=== PATIENT | male | born 1945 | race Caucasian/White ===

== ENCOUNTER 2017-11-23 07:54 | Day surgery (SDC) | payer MEDICARE, OTHER ==
[2017-11-16 10:41] VITALS: BMI 31.4
[~2017-11-23 07:54] MED LIST: LACTATED RINGERS 1,000 ML IV SCH; LIDOCAINE 1% 20 ML VIAL (10MG/ML) FOR IV START INTRADERMA PRN
[2017-11-23 08:12] VITALS: RESP 16; TEMP 99
[2017-11-23] MEDS ORDERED: PROPOFOL 10 MG/ML 20 ML VIAL IV ONE (08:29)
--- NOTE | 2017-11-23 08:34 | P.GSHP ---
History of Present Illness H&P Date: 11/23/17 Chief Complaint: Screening colonoscopy This a 71-year-old male who presents today for screening colonoscopy. Patient has a significant GI complaints. He's had some change in bowel habits recently. Past Medical History Past Medical History: COPD, Hyperlipidemia, Hypertension, Osteoarthritis (OA), Skin Disorder Additional Past Medical History / Comment(s): IBS, vitiligo, psoriasis, acute bronchitis History of Any Multi-Drug Resistant Organisms: None Reported Additional Past Surgical History / Comment(s): pilonidal cyst Past Anesthesia/Blood Transfusion Reactions: No Reported Reaction Smoking Status: Former smoker - Past Family History Father Family Medical History: Cancer Medications and Allergies Home Medications Medication Instructions Recorded Confirmed Type Albuterol Inhaler [Ventolin Hfa 2 puff INHALATION TID PRN 11/16/17 11/16/17 History Inhaler] Famotidine 40 mg PO HS 11/16/17 11/16/17 History Ibuprofen 800 mg PO TID 11/16/17 11/16/17 History Lidocaine 5% Patch [Lidoderm] 1 patch TOPICAL DAILY 11/16/17 11/16/17 History Lisinopril [Zestril] 20 mg PO DAILY 11/16/17 11/16/17 History Allergies Allergy/AdvReac Type Severity Reaction Status Date / Time No Known Allergies Allergy Verified 11/23/17 08:08 Surgical - Exam Vital Signs Temp Pulse Resp BP Pulse Ox 99.0 F 94 16 168/106 96 11/23/17 08:11 11/23/17 08:11 11/23/17 08:11 11/23/17 08:11 11/23/17 08:11 - General well developed, no distress - Eyes PERRL - ENT normal pinna - Neck no masses - Respiratory normal expansion - Cardiovascular Rhythm: regular - Abdomen Abdomen: soft, non tender Assessment and Plan Assessment: We'll perform screening colonoscopy.
--- NOTE | 2017-11-23 08:50 | P.OP ---
Date of Procedure: 11/23/17 Preoperative Diagnosis: Screening colonoscopy Postoperative Diagnosis: Diverticulosis Procedure(s) Performed: Colonoscopy Anesthesia: MAC Surgeon: Delfin Yee Pathology: none sent Condition: stable Disposition: PACU Description of Procedure: Patient's placed on the endoscopy table in the lateral position. He received IV sedation. Digital rectal exam was performed which revealed no abnormalities. The prostate was symmetric without nodules. The flexible colonoscope was then placed patient anus passed throughout the entire colon. The ileocecal valve was visualized. The cecum, ascending and transverse colon appeared normal. In the descending; there was a moderate diverticulosis. The scope was then brought back the rectum and this appeared normal. Scope was withdrawn for patient.
[2017-11-23 08:54] VITALS: BP 115/73
[2017-11-23 09:11] VITALS: PULSE 80
== END 2017-11-23 09:28 | disposition home or self-care (01) ==
LOC: ORWHC2ENDO 07:54
PROVIDERS: ATTEND Surgery
DX: K57.30 Diverticulosis of large intestine without perforation or abscess without bleeding (principal); K58.9 Irritable bowel syndrome, unspecified; J20.9 Acute bronchitis, unspecified; J44.0 Chronic obstructive pulmonary disease with (acute) lower respiratory infection; E78.5 Hyperlipidemia, unspecified; I10 Essential (primary) hypertension; M19.90 Unspecified osteoarthritis, unspecified site; L40.9 Psoriasis, unspecified; L80 Vitiligo; Z87.891 Personal history of nicotine dependence; Z79.1 Long term (current) use of non-steroidal anti-inflammatories (NSAID); Z79.899 Other long term (current) drug therapy
CPT/HCPCS: 45378; J2704

== ENCOUNTER → 2018-02-12 | Outpatient (CLI) | payer OTHER ==
[2018-02-12 13:27] LABS: HCT 40.3 % (39.0-53.0); MCH 33.1 pg (25.0-35.0); MCHC 34.9 g/dL (31.0-37.0); MCV 94.8 fL (80.0-100.0); Mean Platelet Volume 7.2; Platelet Count 207 k/uL (150-450); RBC 4.25 m/uL (4.30-5.90); RDW 13.7 % (11.5-15.5); WBC 8.9 k/uL (3.8-10.6)
[2018-02-12 20:53] LABS: Anion Gap 5.6 mmol/L (4.00-12.00); Carbon Dioxide 29.4 mmol/L (21.6-31.8); Magnesium 1.9 mg/dL (1.5-2.4); Potassium 4.4 mmol/L (3.5-5.5)
== END | disposition home or self-care (01) ==
LOC: LABWHC1 12:55
PROVIDERS: ATTEND Internal Medicine Interventional Cardiology
DX: Z01.812 Encounter for preprocedural laboratory examination (principal); M47.812 Spondylosis without myelopathy or radiculopathy, cervical region; R07.89 Other chest pain; I10 Essential (primary) hypertension
CPT/HCPCS: 36415; 80051; 82565; 82947; 83735; 84520; 85027

== ENCOUNTER 2018-02-28 08:36 | Day surgery (SDC) | payer OTHER ==
[2018-02-22 14:25] VITALS: BMI 30.4
[~2018-02-28 08:36] MED LIST changes: +ALPRAZolam 0.25 MG TAB PO PRN; +ALPRAZolam 0.5 MG TAB PO PRN; +ASPIRIN 325 MG TAB PO ONE; +ATORVASTATIN 80 MG TAB PO ONE; -LACTATED RINGERS 1,000 ML IV SCH; -LIDOCAINE 1% 20 ML VIAL (10MG/ML) FOR IV START INTRADERMA PRN; +NITROGLYCERIN SL TABS 0.4 MG TAB SUBLINGUAL PRN; +SODIUM CHLORIDE 0.9% 1,000 ML in EMPTY BAG 1 BAG IV ONE
[2018-02-28] MEDS ORDERED: LIDOCAINE 1% INJ 10MG/ML (20 ML MDV) ONE ×2 (12:10→12:20)
[2018-02-28] MEDS ORDERED: MIDAZOLAM 2 MG/2 ML VIAL ONE (12:12)
[2018-02-28] MEDS ORDERED: MIDAZOLAM 2 MG/2 ML VIAL IV ONE (12:15)
[2018-02-28] MEDS ORDERED: LIDOCAINE 1% INJ 10MG/ML (20 ML MDV) SQ ONE ×2 (12:15→12:17)
[2018-02-28] MEDS ORDERED: HEPARIN SODIUM 1,000 UN/ML (10ML VL) ONE (12:31)
[2018-02-28] MEDS ORDERED: IOPAMIDOL-370 100ML BTL INJ ONE ×2 (13:07→13:32)
[2018-02-28] MEDS ORDERED: TICAGRELOR 90 MG TAB ONE (13:24)
[2018-02-28] MEDS ORDERED: TICAGRELOR 90 MG TAB PO ONE (13:26)
[2018-02-28] MEDS ORDERED: NITROGLYCERIN 1000MCG/10ML SYRINGE INTRACORON ONE (13:28)
[2018-02-28] MEDS ORDERED: MORPHINE SULFATE 4 MG/ML SYRINGE ONE (13:33)
[2018-02-28] MEDS ORDERED: MORPHINE SULFATE 4 MG/ML SYRINGE IV ONE (13:34)
[2018-02-28] MEDS ORDERED: RX INFO: IV CONTRAST WAS GIVEN 1 EACH MISC MISCELLANE PRN (13:40)
[2018-02-28] MEDS ORDERED: NITROGLYCERIN SL TABS 0.4 MG TAB SUBLINGUAL PRN (13:40)
[2018-02-28] MEDS ORDERED: ATROPINE SULFATE 0.1 MG/ML 10ML SYRINGE IV PRN (13:40)
[2018-02-28] MEDS ORDERED: ZOLPIDEM 5 MG TAB PO PRN (13:40)
[2018-02-28] MEDS ORDERED: MAG HYDROX/AL HYDROX/SIMETH 30 ML CUP PO PRN (13:40)
[2018-02-28] MEDS: METOPROLOL TARTRATE 25 MG TAB PO SCH (19:54)
[2018-02-28] MEDS: SODIUM CHLORIDE 0.9% 1,000 ML IV SCH (22:08)
[2018-03-01 07:46] LABS: Calcium 8.7 mg/dL (8.4-10.2); Potassium 3.9 mmol/L (3.5-5.1)
[2018-03-01 07:53] LABS: Basophils % (A) 0 %; Eosinophils # (A) 0.1 k/uL (0-0.7); Eosinophils % (A) 1 %; HCT 32.4 % (39.0-53.0); HGB 11.1 gm/dL (13.0-17.5); Lymphocytes % (A) 22 %; MCH 32.8 pg (25.0-35.0); MCHC 34.2 g/dL (31.0-37.0); MCV 95.8 fL (80.0-100.0); Mean Platelet Volume 7.1; Monocytes # (A) 0.6 k/uL (0-1.0); Monocytes % (A) 7 %; Neutrophils % (A) 68 %; Platelet Count 210 k/uL (150-450); RBC 3.38 m/uL (4.30-5.90); RDW 13.6 % (11.5-15.5); WBC 8.8 k/uL (3.8-10.6)
[2018-03-01 08:11] VITALS: BP 106/49; PULSE 65; RESP 17; TEMP 98.4
[2018-03-01] MEDS: METOPROLOL TARTRATE 25 MG TAB PO SCH (08:12)
[2018-03-01] MEDS: SODIUM CHLORIDE 0.9% 1,000 ML IV SCH (08:12)
[2018-03-01] MEDS ORDERED: LOSARTAN 25 MG TAB PO SCH (09:00)
[2018-03-01] MEDS ORDERED: ASPIRIN 81 MG PO SCH (09:00)
[2018-03-01] MEDS ORDERED: CLOPIDOGREL 75 MG TAB PO SCH (09:00)
[2018-03-01] MEDS ORDERED: ATORVASTATIN 40 MG TAB PO SCH (09:00)
--- NOTE | 2018-03-01 14:06 | PCN ---
PROCEDURE NOTE DATE OF SERVICE: 02/28/2018 PROCEDURE: 1. Transvenous temporary pacemaker placement. 2. Orbital atherectomy of proximal and distal heavily calcified super dominant RCA. 3. PTCA and stenting of proximal and distal RCA with drug-eluting stent. PERFORMED BY: Dr. Vinicio Burger. Moderate conscious sedation time was 83 minutes. Patient was administered Versed, Benadryl and fentanyl and his oxygen saturation, hemodynamics and EKG were monitored closely. CLINICAL INFORMATION: Mr. Caleb Coronado is a 72-year-old gentleman, a who has been having symptoms of angina, had a positive stress test with inferolateral ischemia, underwent a cardiac cath last week, which revealed a significant lesion involving a superdominant RCA in the proximal and distal portion with a heavily calcified vessel. He also had a circumflex lesion. LAD had minor irregularities. He was advised intervention and brought in for the procedure electively. Risks, benefits, options, rationale were explained and discussed with the patient and family. They understood all details and wished to proceed with the procedure. PROCEDURE NOTE: Under local anesthesia and strict aseptic precautions, a 6-Algerian introducer was placed in the right femoral vein. The transvenous temporary balloon to pacemaker was positioned in the right ventricular apex with good thresholds. Pacemaker was set at a backup rate of 40 with a mA of 5. From the right femoral approach under local anesthesia and strict aseptic precautions, an access was obtained with micropuncture needle technique. A 7-Algerian introducer was placed in the right femoral artery. I used Allright 3.5 guide catheter of 7-Algerian caliber to cannulate the right coronary artery. I used a BMW straight wire to cross the lesion. Using a FineCross catheter, I exchanged the wire and placed a Viper wire. I then performed orbital atherectomy of both the proximal and distal lesions. Three passes were made of each location at a low speed. Patient tolerated the procedure well so far. Subsequently, I pre-dilated with a 3.0 balloon to both the lesions. Subsequently, an 18 mm 3.5 caliber Xience drug- eluting stent was deployed in the distal lesion. This was deployed at 14 atmospheres with an excellent angiographic result. Subsequently, I deployed a 4.0 caliber Xience stent in the proximal lesion of about 12 mm length. This stent was then post-dilated with a 4.5 caliber 12 mm NC Trek balloon at 15 atmospheres. Both the stents were very well expanded angiographically. Excellent result was achieved. Patient had chest pain and inferior ST elevation with inflations. Excellent angiographic result without complication was achieved. The arterial sheath was taken out and a Perclose device used to secure hemostasis. The venous sheath was taken out and manual compression used to secure hemostasis and he was sent to the extended stay unit in a stable condition. Results were discussed with the patient's son and [id number]. I also discussed with the patient the findings. Excellent angiographic result without complication was achieved. I expect the patient to be discharged in 24 hours. MMODL / IJN: [id number] /
--- NOTE | 2018-03-01 20:51 | DS ---
DISCHARGE SUMMARY DATE OF ADMISSION: 02/28/2018. DATE OF DISCHARGE: 03/01/2018. PROCEDURES PERFORMED: Transvenous temporary pacemaker, PTCA and stenting of proximal and distal RCA along with orbital atherectomy. Drug-eluting stents were used. Mr. Coronado was brought in electively for PCI and orbital atherectomy. Procedure was performed uneventfully. Postprocedure course was unremarkable. There was mild oozing of the right groin and FemoStop was applied. This morning he is doing well without symptoms ambulating without any problems. His right groin is clean and dry with a small area of a hematoma, but he had a previous hematoma as well, which was a small hematoma from a cath a week ago. There is no bruit. The pulse is excellent. He is ambulating without symptoms. His blood pressure is 110/70, pulse rate is about 64 per minute. There is no JVD or carotid bruit. S1, S2 with a short systolic murmur audible. Lungs are clear. Abdomen is soft, nontender. Right groin is clean and dry with a small area of ecchymosis. No hematoma. Distal pulses are good. Central nervous system is normal. EKG revealed sinus mechanism with a right bundle. Laboratory data are still pending at the time of my dictation. This patient will be discharged and I will see him in the office tomorrow for a followup visit. He has a circumflex lesion which will be addressed in the next 4-5 weeks or so. All discharge instructions were given. Prior to discharge, we will make sure he ambulates without symptoms, has no issues and we will check his laboratory data. I discussed my thoughts in detail with the patient and also the discharge nurse, Anne. MMJAYSHREE / KERI: [id number] /
== END 2018-03-01 11:58 | disposition home or self-care (01) ==
LOC: CATHCVL 08:36 → 3SCARD 17:59 → CATHCVL 03-01 11:58
PROVIDERS: ATTEND Internal Medicine Interventional Cardiology
DX: I25.10 Atherosclerotic heart disease of native coronary artery without angina pectoris (principal); I25.84 Coronary atherosclerosis due to calcified coronary lesion; I10 Essential (primary) hypertension; Z87.891 Personal history of nicotine dependence; E78.00 Pure hypercholesterolemia, unspecified; J44.9 Chronic obstructive pulmonary disease, unspecified; M47.812 Spondylosis without myelopathy or radiculopathy, cervical region; M47.816 Spondylosis without myelopathy or radiculopathy, lumbar region; Z79.82 Long term (current) use of aspirin; Z79.899 Other long term (current) drug therapy
CPT/HCPCS: 80048; 85025; C9602; C1769 ×4; C1725 ×2; C1894; C1887; C1760; C1874; J2250; J2270; J2001; J1644 ×2; Q9967

== ENCOUNTER → 2018-03-30 | Outpatient (CLI) | payer OTHER ==
[2018-03-30 17:24] LABS: HCT 37.5 % (39.0-53.0); HGB 12.1 gm/dL (13.0-17.5); MCH 32.1 pg (25.0-35.0); MCHC 32.3 g/dL (31.0-37.0); MCV 99.2 fL (80.0-100.0); Mean Platelet Volume 6.7; Platelet Count 181 k/uL (150-450); RBC 3.78 m/uL (4.30-5.90); RDW 13.4 % (11.5-15.5); WBC 7.6 k/uL (3.8-10.6)
[2018-03-31 02:31] LABS: Anion Gap 7.7 mmol/L (4.00-12.00); Carbon Dioxide 28.3 mmol/L (21.6-31.8); Potassium 4.3 mmol/L (3.5-5.5)
== END | disposition home or self-care (01) ==
LOC: LABWHC1 17:04
PROVIDERS: ATTEND Internal Medicine Interventional Cardiology
DX: I25.10 Atherosclerotic heart disease of native coronary artery without angina pectoris (principal); I10 Essential (primary) hypertension
CPT/HCPCS: 36415; 80051; 82565; 82947; 84520; 85027

== ENCOUNTER 2018-04-04 08:22 | Day surgery (SDC) | payer OTHER ==
[~2018-04-04 08:22] MED LIST changes: -ASPIRIN 325 MG TAB PO ONE; +ASPIRIN 325 MG TAB PO STA; -ATORVASTATIN 80 MG TAB PO ONE; +ATORVASTATIN 80 MG TAB PO STA
[2018-04-04] MEDS ORDERED: SODIUM CHLORIDE 0.9% 1,000 ML IV ONE (08:58)
[2018-04-04] MEDS ORDERED: LIDOCAINE 1% INJ 10MG/ML (20 ML MDV) ONE (10:10)
[2018-04-04] MEDS ORDERED: MIDAZOLAM 2 MG/2 ML VIAL IVP ONE (10:35)
[2018-04-04] MEDS ORDERED: LIDOCAINE 1% INJ 10MG/ML (20 ML MDV) SQ ONE (10:38)
[2018-04-04] MEDS ORDERED: MORPHINE SULFATE 4 MG/ML SYRINGE ONE (10:41)
[2018-04-04] MEDS: MORPHINE SULFATE 4 MG/ML SYRINGE IV ONE ×2 (10:43→11:16)
[2018-04-04] MEDS ORDERED: BIVALIRUDIN BOLUS 250 MG/50 ML IV ONE (10:50)
[2018-04-04] MEDS: NITROGLYCERIN 1000MCG/10ML SYRINGE INTRACORON ONE ×2 (10:50→11:11)
[2018-04-04] MEDS ORDERED: BIVALIRUDIN 250 MG in SODIUM CHLORIDE 0.9% 50 ML IV ONE (10:50)
[2018-04-04] MEDS ORDERED: IOPAMIDOL-370 100ML BTL INJ ONE ×2 (11:00→11:16)
[2018-04-04] MEDS ORDERED: CLOPIDOGREL 75 MG TAB ONE (11:14)
[2018-04-04] MEDS ORDERED: CLOPIDOGREL 75 MG TAB PO ONE (11:17)
[2018-04-04] MEDS ORDERED: RX INFO: IV CONTRAST WAS GIVEN 1 EACH MISC MISCELLANE PRN (11:32)
[2018-04-04] MEDS ORDERED: MAG HYDROX/AL HYDROX/SIMETH 30 ML CUP PO PRN (11:32)
[2018-04-04] MEDS ORDERED: ATROPINE SULFATE 0.1 MG/ML 10ML SYRINGE IV PRN (11:32)
[2018-04-04] MEDS ORDERED: NITROGLYCERIN SL TABS 0.4 MG TAB SUBLINGUAL PRN ×2 (11:32→11:41)
[2018-04-04] MEDS ORDERED: ZOLPIDEM 5 MG TAB PO PRN (11:32)
[2018-04-04] MEDS: SODIUM CHLORIDE 0.9% 1,000 ML IV SCH (17:57)
--- NOTE | 2018-04-04 17:57 | CC ---
CARDIAC CATHETERIZATION REPORT DATE OF SERVICE: 04/04/2018. PROCEDURE PERFORMED: 1. Coronary angiography of the right coronary artery. 2. PTCA and stenting of a very tortuous calcified circumflex marginal coronary artery with a drug-eluting stent. PERFORMED BY: Dr. Vinicio Burger. SEDATION: Moderate conscious sedation time was 55 minutes. CLINICAL INFORMATION: Mr. Caleb Coronado is a 72-year-old gentleman with history of hypertension, hyperlipidemia, and smoking, who had significant CAD. On February 28, I performed a PTCA and stenting of a very complex lesions in the RCA with orbital atherectomy and drug-eluting stents. He was advised to come back in for elective PCI of circumflex which had a significant eccentric very hidden lesion best visualized in the ALEJO caudal projection only. PROCEDURE NOTE: Under local anesthesia and strict aseptic precautions, a 6-Bulgarian introducer was placed in the right femoral artery. I used a standard right Ya catheter to perform selective coronary angiography of the right coronary artery which was stented about a month ago. This vessel was widely patent without any compromise. I then turned my attention to the left system. A standard left Ya guide catheter of 6-Bulgarian caliber was used to cannulate the left coronary artery. I used a run-through wire and I had a lot of difficulty getting into the obtuse marginal which was very tortuous located at 2 acute bends. However, I took the same wire, made a steep curve and with this I was able to cross the lesion. Wire was kept distally. Predilatation was performed with a 2.5 caliber 12 mm NC Trek balloon. I then used a 2.75 caliber 12 mm long Xience stent and with some forward pressure on the guide catheter and some manipulation, I was able to advance the stent and positioned it accurately. The stent balloon was then prepped. I then deployed this at 13 atmospheres with an excellent angiographic result. Patient had chest pain, but no EKG changes. Excellent angiographic result without complication was achieved. He received additional 225 mg of Plavix and patient was already on aspirin and Plavix. The sheath was then taken out and a Perclose device used to secure hemostasis, but because of some oozing I applied a FemoStop for 3 hours. Excellent angiographic result without complication was achieved and the previously stented RCA is widely patent. The circumflex was stented with a drug-eluting stent and this was a very tortuous complex circumflex vessel with calcification. Excellent result was achieved and previously stented RCA was widely patent. I expect the patient to be discharged tomorrow. There was no family available, but results were discussed with the patient. MMJAYSHREE / IJN: [id number] /
[2018-04-04] MEDS: METOPROLOL TARTRATE 25 MG TAB PO SCH (20:56)
[2018-04-04 20:58] VITALS: RESP 16
[2018-04-05] MEDS: SODIUM CHLORIDE 0.9% 1,000 ML IV SCH (02:03)
[2018-04-05 07:05] LABS: Basophils % (A) 0 %; Eosinophils # (A) 0.1 k/uL (0-0.7); Eosinophils % (A) 2 %; HGB 11.7 gm/dL (13.0-17.5); Lymphocytes # (A) 1.1 k/uL (1.0-4.8); Lymphocytes % (A) 21 %; MCH 32.8 pg (25.0-35.0); MCHC 33.3 g/dL (31.0-37.0); MCV 98.5 fL (80.0-100.0); Mean Platelet Volume 6.9; Monocytes # (A) 0.3 k/uL (0-1.0); Monocytes % (A) 6 %; Neutrophils # (A) 3.8 k/uL (1.3-7.7); Neutrophils % (A) 70 %; Platelet Count 161 k/uL (150-450); RBC 3.55 m/uL (4.30-5.90); RDW 13.1 % (11.5-15.5); WBC 5.4 k/uL (3.8-10.6)
[2018-04-05 07:22] LABS: Calcium 8.7 mg/dL (8.4-10.2); Potassium 4.1 mmol/L (3.5-5.1)
[2018-04-05] MEDS: METOPROLOL TARTRATE 25 MG TAB PO SCH (08:15)
[2018-04-05] MEDS ORDERED: LOSARTAN 50 MG TAB PO SCH (09:00)
[2018-04-05] MEDS ORDERED: ATORVASTATIN 40 MG TAB PO SCH (09:00)
[2018-04-05] MEDS ORDERED: ASPIRIN 81 MG PO SCH (09:00)
[2018-04-05] MEDS ORDERED: CLOPIDOGREL 75 MG TAB PO SCH (09:00)
[2018-04-05 11:33] VITALS: BP 122/70; PULSE 66; TEMP 97.7
--- NOTE | 2018-04-05 14:34 | DS ---
DISCHARGE SUMMARY DATE OF ADMISSION: 04/04/2018 DATE OF DISCHARGE: 04/05/2018 DIAGNOSES: Unstable angina, hypertension. PROCEDURES PERFORMED: PTCA and stenting of a circumflex coronary artery and coronary angiography of the right coronary artery. Drug-eluting stent was used. Mr. Coronado was brought into the hospital for elective PCI of circumflex. Coronary angiography was performed of the RCA to check the patency and this vessel was stented with orbital atherectomy a month ago. The vessel was widely patent. I then performed stenting of a very complex tortuous circumflex marginal with excellent result. Postprocedure course was uneventful. He had some oozing from the groin, a FemoStop was applied. He is doing well. Right groin is clean and dry. Vitals are stable. EKG is good without acute changes. Labs are good. S1-S2 heard normally, short systolic murmur noted. Lungs are clear. Abdomen and lower extremity exam unchanged. Patient will be discharged today and I will see him in the next 48 hours. Discharge instructions regarding activity, diet and medications were given. MMODL / IJN: [id number] /
== END 2018-04-05 13:56 | disposition home or self-care (01) ==
LOC: CATHCVL 08:22 → 3SCARD 11:22 → CATHCVL 04-05 13:56
PROVIDERS: ATTEND Internal Medicine Interventional Cardiology
DX: I25.10 Atherosclerotic heart disease of native coronary artery without angina pectoris (principal); I25.84 Coronary atherosclerosis due to calcified coronary lesion; I10 Essential (primary) hypertension; Z87.891 Personal history of nicotine dependence; I77.1 Stricture of artery; Z95.5 Presence of coronary angioplasty implant and graft; E78.5 Hyperlipidemia, unspecified; M47.9 Spondylosis, unspecified; Z79.82 Long term (current) use of aspirin; Z79.899 Other long term (current) drug therapy; Z79.02 Long term (current) use of antithrombotics/antiplatelets; E78.00 Pure hypercholesterolemia, unspecified
CPT/HCPCS: 80048; 85025; C9600; C1887; C1769 ×4; C1725; C1894; C1760; C1874; J2250; J2270; J2001; J0583; Q9967

== ENCOUNTER 2023-07-08 09:22 | Emergency (ER) | payer OTHER ==
[2023-07-08 10:00] VITALS: TEMP 99.7
--- NOTE | 2023-07-08 10:10 | ED ---
URI HPI - General Chief Complaint: Upper Respiratory Infection Stated Complaint: COUGH Time Seen by Provider: 07/08/23 09:39 Source: patient, RN notes reviewed Mode of arrival: ambulatory Limitations: no limitations - History of Present Illness Initial Comments: This is a 77-year-old male who presents to the emergency department for coughing, congestion, and mild shortness of breath. States that symptoms started 2 to 3 days ago. The cough is described as productive. He has not measured any fevers. He does have a history of COPD and used his albuterol inhaler prior to arrival, which was somewhat helpful. He has had sick contacts. Denies any chest pain. He has mild shortness of breath and body aches. MD Complaint: cough, nasal congestion - Related Data Home Medications Medication Instructions Recorded Confirmed Atorvastatin [Lipitor] 40 mg PO DAILY 02/15/18 04/04/18 Losartan [Cozaar] 100 mg PO DAILY 02/15/18 04/04/18 Metoprolol Tartrate [Lopressor] 25 mg PO BID 02/15/18 04/04/18 Previous Rx's Medication Instructions Recorded Aspirin 81 mg PO DAILY #90 chew 03/01/18 Clopidogrel [Plavix] 75 mg PO DAILY #90 tab 03/01/18 Nitroglycerin Sl Tabs [Nitrostat] 0.4 mg SUBLINGUAL Q5M PRN #25 tab 03/01/18 Azithromycin [Zithromax] 250 mg PO DIRECTED 5 Days #6 tab 07/08/23 Benzonatate [Tessalon Perle] 200 mg PO TID PRN #30 capsule 07/08/23 Oseltamivir [Tamiflu] 75 mg PO Q12HR 5 Days #10 cap 07/08/23 Allergies Allergy/AdvReac Type Severity Reaction Status Date / Time No Known Allergies Allergy Verified 07/08/23 09:34 Review of Systems ROS Statement: Those systems with pertinent positive or pertinent negative responses have been documented in the HPI. ROS Other: All systems not noted in ROS Statement are negative. Past Medical History Past Medical History: COPD, Hyperlipidemia, Hypertension, Osteoarthritis (OA), Skin Disorder Additional Past Medical History / Comment(s): IBS, vitiligo, psoriasis History of Any Multi-Drug Resistant Organisms: None Reported Past Surgical History: Heart Catheterization, Heart Catheterization With Stent Additional Past Surgical History / Comment(s): pilonidal cyst Past Anesthesia/Blood Transfusion Reactions: No Reported Reaction Date of Last Stent Placement:: 02-28-18 Past Psychological History: No Psychological Hx Reported Smoking Status: Never smoker Past Alcohol Use History: Occasional Past Drug Use History: None Reported - Past Family History Father Family Medical History: Cancer General Exam Limitations: no limitations General appearance: alert, in no apparent distress Head exam: Present: atraumatic, normocephalic, normal inspection Respiratory exam: Present: normal lung sounds bilaterally. Absent: respiratory distress, wheezes, rales, rhonchi, stridor Cardiovascular Exam: Present: regular rate, normal rhythm, normal heart sounds. Absent: systolic murmur, diastolic murmur, rubs, gallop, clicks Neurological exam: Present: alert, oriented X3, CN II-XII intact Psychiatric exam: Present: normal affect, normal mood Skin exam: Present: warm, dry, intact, normal color. Absent: rash Course Vital Signs 07/08/23 07/08/23 07/08/23 09:30 09:41 09:44 Temperature 99.7 F H Pulse Rate 62 89 Respiratory 20 16 16 Rate Blood Pressure 193/82 182/89 O2 Sat by Pulse 97 98 Oximetry 07/08/23 07/08/23 07/08/23 11:14 11:23 11:37 Temperature Pulse Rate 58 L 64 85 Respiratory 18 Rate Blood Pressure 137/86 O2 Sat by Pulse 94 L Oximetry Medical Decision Making - Medical Decision Making This is a 77 year old male who presents to the emergency department for coughing and congestion. Was pt. sent in by a medical professional or institution? @ -No Did you speak to anyone other than the patient for history? @ -No Did you review nursing and triage notes? @ -Yes, and I agree, it is accurate with regards to the patient's symptoms. Were old charts reviewed? @ -No Differential Diagnosis? @ -Differential Cough: Influenza, Covid, RSV, croup, allergic rhinitis, GERD, pneumonia, bronchitis, COPD, viral pharyngitis, streptococcal pharyngitis, this is not meant to be an all-inclusive list. EKG interpreted by me (3pts min.)? @ -Not obtained X-rays interpreted by me (1pt min.)? @ -Chest x-ray obtained, my interpretation identifies no localized consolidations or infiltrates. CT interpreted by me (1pt min.)? @ -Not obtained U/S interpreted by me (1pt. min.)? @ -Not obtained What testing was considered but not performed? (CT, X-rays, U/S, labs)? Why? @ -None What meds were considered but not given? Why? @ -None Did you discuss the management of the patient with other professionals? @ -No Did you reconcile home meds? @ -No Was smoking cessation discussed for >3mins.? @ -No Was critical care preformed (if so, how long)? @ -No Were there social determinants of health that impacted care today? How? (Homelessness, low income, unemployed, alcoholism, drug addiction, transportation, low edu. Level, literacy, decrease access to med. care, longterm, rehab)? @ -No Was there de-escalation of care discussed even if they declined? (Discuss DNR or withdrawal of care, Hospice)? @ -No What co-morbidities impacted this encounter? (DM, HTN, Smoking, COPD, CAD, Cancer, CVA, Hep., AIDS, mental health diagnosis, sleep apnea, morbid obesity)? @ -COPD Was patient admitted / discharged? @ -Discharged. Influenza A testing positive. Chest x-ray reveals no acute process. Tessalon Perles, Solu-Medrol, Tylenol, and DuoNeb breathing treatment administered in the emergency department with improvement in symptoms. Prescription for Tamiflu, Zithromax, and Tessalon Perles provided with dosing instructions reviewed for influenza A with COPD exacerbation. Advised ibuprofen and Tylenol as needed for any fevers. He is also advised to continue with his albuterol breathing treatments as needed. Patient discharged home in stable condition and will follow-up with his primary care provider. Undiagnosed new problem with uncertain prognosis? @ -None Drug Therapy requiring intensive monitoring for toxicity (Heparin, Nitro, Insulin, Cardizem)? @ -None Were any procedures done? @ -None Diagnosis/symptom? @ -Influenza A Acute, or Chronic, or Acute on Chronic? @ -Acute Uncomplicated (without systemic symptoms) or Complicated (systemic symptoms)? @ -Uncomplicated Side effects of treatment? @ -None Exacerbation, Progression, or Severe Exacerbation] @ -Not applicable Poses a threat to life or bodily function? @ -No Return precautions reviewed in depth, the patient is instructed to return to the emergency department with any new, worsening, or concerning symptoms. Patient verbalized understanding. This case was discussed in detail with the attending ED physician, Dr. Coon. Presentation, findings, and treatment plan discussed in detail as well. - Lab Data Lab Results 07/08/23 Range/Units 10:09 Influenza Type A (PCR) Detected A (Not Detectd) Influenza Type B (PCR) Not Detected (Not Detectd) RSV (PCR) Not Detected (Not Detectd) SARS-CoV-2 (PCR) Not Detected (Not Detectd) - Radiology Data Radiology results: report reviewed, image reviewed Disposition Clinical Impression: Influenza A, COPD (chronic obstructive pulmonary disease) Disposition: HOME SELF-CARE Instructions (If sedation given, give patient instructions): Influenza (ED) Additional Instructions: Return to the emergency department with any new, worsening, or concerning symptoms. Take the antibiotic and Tamiflu as prescribed for 5 days. You can take the Tamiflu every 8 hours as needed for coughing. Use your albuterol inhaler as needed. Follow up with your primary care provider in 1-2 days. Prescriptions: Oseltamivir [Tamiflu] 75 mg PO Q12HR 5 Days #10 cap Benzonatate [Tessalon Perle] 200 mg PO TID PRN #30 capsule PRN Reason: Cough Azithromycin [Zithromax] 250 mg PO DIRECTED 5 Days #6 tab Is patient prescribed a controlled substance at d/c from ED?: No Referrals: [facility],Clinic [Primary Care Provider] - 1-2 days Time of Disposition: 11:14
[2023-07-08] MEDS: methylPREDNISolone SOD SUCCI 125 MG/2 ML VIAL IM ONE (10:15)
[2023-07-08] MEDS: BENZONATATE 100 MG CAP PO STA (10:16)
[2023-07-08] MEDS: ACETAMINOPHEN TAB 500 MG TAB PO STA (10:16)
--- NOTE | 2023-07-08 10:31 | XR ---
EXAMINATION TYPE: XR chest 2V DATE OF EXAM: 07/08/2023 COMPARISON: NONE HISTORY: Cough TECHNIQUE: Frontal and lateral views of the chest are obtained. FINDINGS: There is no focal air space opacity, pleural effusion, or pneumothorax seen. The cardiac silhouette size is within normal limits. The osseous structures are intact. IMPRESSION: No acute cardiopulmonary process.
[2023-07-08] MEDS: IPRATROPIUM-ALBUTEROL 3 ML NEB INHALATION STA (11:14)
[2023-07-08 11:44] VITALS: BP 137/86; PULSE 85; RESP 18
== END 2023-07-08 11:37 | disposition home or self-care (01) ==
LOC: EC 09:22
DX: J10.1 Influenza due to other identified influenza virus with other respiratory manifestations (principal); B95.0 Streptococcus, group A, as the cause of diseases classified elsewhere; J44.9 Chronic obstructive pulmonary disease, unspecified
CPT/HCPCS: 87636; 71046; 99283; 96372; J2930